=== PATIENT | male | born 1990 | race Caucasian/White ===

== ENCOUNTER 2020-07-12 11:10 | Emergency (ER) | payer SELFPAY ==
[2020-07-12 11:16] VITALS: BP 120/75; PULSE 75; TEMP 97.2; BMI 29.0
[2020-07-12] MEDS ORDERED: IBUPROFEN 600 MG TABLET (FP) PO ONE ×2 (11:57→12:01)
== END 2020-07-12 12:46 | disposition home or self-care (01) ==
LOC: JERFT 11:10
PROC: 2W3CX1Z Immobilization of Right Lower Arm using Splint (ICD-10-PCS; principal; 2020-07-12)
DX: S62.394A Other fracture of fourth metacarpal bone, right hand, initial encounter for closed fracture (principal); S62.396A Other fracture of fifth metacarpal bone, right hand, initial encounter for closed fracture
CPT/HCPCS: 73110-TC-RT-FY; 73130-TC-RT-FY; 99283-25